=== PATIENT | male | born 1990 | race Caucasian/White ===

== ENCOUNTER 2016-09-05 10:40 | Emergency (ER) | payer BC ==
[~2016-09-05] VITALS: Ht 177.8 cm; Wt 86.2 kg
[2016-09-05 10:46] VITALS: BP 134/89
--- NOTE | 2016-09-05 10:59 | Emergency Room Report ---
History of Present Illness General Chief Complaint: Overdose Source: Patient, EMS Present Illness HPI Patient reports that he overdosed on heroin Patient was with a friend who called paramedics Patient reports last overdose was several months ago At this time feels much better denies any headache visual changes denies any chest pain or shortness of breath denies any back or flank pain He reports that he only did"a little bit" In addition what he reacted that way After being given Narcan by paramedics Patient became GCS 15 and fully responsive Allergies: Coded Allergies: No Known Allergies (Unverified , 09/05/16) Patient History Past Medical History: see triage record Pertinent Family History: none Reviewed Nursing Documentation: PMH: Agreed, PSxH: Agreed Nursing Documentation-PMH Past Medical History: No History, Except For Hx Neurological Problems: Yes - SUBSTANCE ABUSE Review of Systems All Other Systems: negative except mentioned in HPI Physical Exam Vital Signs Date Time Temp Pulse Resp B/P Pulse Ox O2 Delivery O2 Flow Rate FiO2 09/05/16 10:37 102 18 134/89 99 Room Air 09/05/16 10:46 4.0 Sp02 EP Interpretation: reviewed, normal General Appearance: well appearing, no apparent distress Head: normocephalic, atraumatic Eyes: bilateral eye EOMI, bilateral eye PERRL ENT: hearing grossly normal, normal pharynx, TMs + canals normal, uvula midline Neck: full range of motion, supple, no meningismus, no bony tend Respiratory: lungs clear, normal breath sounds, no rhonchi, no respiratory distress, no retraction, no accessory muscle use Cardiovascular #1: normal peripheral pulses, regular rate, rhythm, no edema, no gallop, no JVD, no murmur Gastrointestinal: normal bowel sounds, non tender, soft, no mass, no organomegaly, non-distended, no guarding, no hernia, no pulsatile mass, no rebound Genitourinary: no CVA tenderness Musculoskeletal: normal inspection Neurologic: oriented x3, responsive, 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, motor strength/ tone normal, sensory intact Psychiatric: mood/affect normal Skin: normal color, no rash, warm/dry, palpation normal Lymphatic: normal inspection, no adenopathy Medical Decision Making Diagnostic Impression: Primary Impression: Drug overdose ER Course At this time the patient remained awake responsive Easily arousable was provided Narcan here in the emergency room Patient was on cardiac monitoring I did speak to the patient's mom at length She is concerned and has tried to find as needed for outpatient rehabilitation She mentioned [facility] in [place] She will be able to present to the emergency room at 3:00 to take her son to the rehabilitation facility Going back to update the patient regarding this I was told by the nursing staff that the patient removed his IV and eloped from the emergency room Patient was attempted to be stopped however it was not able to Police Department were contacted I did also look for a phone number for the patient's mom however there is no contact to update her with Last Vital Signs Date Time Temp Pulse Resp B/P Pulse Ox O2 Delivery O2 Flow Rate FiO2 09/05/16 10:46 89 18 Room Air 09/05/16 10:46 134/89 96 4.0 Status: improved Disposition: ELOPED Condition: Unknown RUPERT SINGLETON D.O. September 05, 2016 10:59
[2016-09-05] MEDS ORDERED: Naloxone 0.4mg/ml Inj IVP ONE (11:00)
[2016-09-05 12:10] VITALS: BP 134/89
== END 2016-09-05 15:36 | disposition left against medical advice (07) ==
LOC: EDBD 10:40 → EMR 11:35
DX: T40.1X1A Poisoning by heroin, accidental (unintentional), initial encounter (principal)
CPT/HCPCS: 96360; 96374; 99284; J2310